=== PATIENT | male | born 1945 | race Caucasian/White ===

== ENCOUNTER 2017-06-28 07:13 | Emergency (ER) | payer MEDICARE ==
[~2017-06-28] VITALS: Ht 177.8 cm; Wt 100.0 kg
[2017-06-28] MEDS ORDERED: DSS100 PO (07:25)
[2017-06-28] MEDS ORDERED: CIPR-278 PO (07:25)
[2017-06-28] MEDS ORDERED: LISI-660 PO (07:25)
[2017-06-28] MEDS ORDERED: SIMV-259 PO (07:25)
[2017-06-28] MEDS ORDERED: ASPI81 PO (07:25)
[2017-06-28] MEDS ORDERED: METF850T2 PO (07:25)
[2017-06-28 07:52] LABS: BASOPHILS # (AUTO) 0.01 K/uL (0.00-0.20); BASOPHILS % (AUTO) 0.2 % (0.0-2.0); EOSINOPHILS # (AUTO) 0.09 K/uL (0.00-0.70); HEMOGLOBIN 13.5 g/dL (13.5-17.5); LYMPHOCYTES # (AUTO) 0.6 K/uL (1.0-4.8); LYMPHOCYTES % (AUTO) 11.2 % (22.0-44.0); MEAN CORPUSCULAR HEMOGLOBIN 30.4 pg (26.0-34.0); MEAN CORPUSCULAR VOLUME 92 fL (80-100); MONOCYTES # (AUTO) 0.6 K/uL (0.1-1.0); PLATELET COUNT (AUTO) 272 K/uL (150-450); RED BLOOD CELL COUNT(AUTO) 4.44 MIL/uL (4.50-5.90); RED CELL DISTRIBUTION WIDTH 13.4 % (11.5-14.5); WHITE BLOOD COUNT (AUTO) 5.3 K/uL (4.5-11.0)
[2017-06-28 07:59] LABS: APPEARANCE,URINE TURBID (CLEAR); GLUCOSE, URINE (UA) NEGATIVE (NEGATIVE); KETONES,URINE NEGATIVE (NEGATIVE); LEUKOCYTE ESTERASE ,URINE LARGE (NEGATIVE); OCCULT BLOOD,URINE MODERATE (NEGATIVE); PH,URINE 5.5 (5.0-8.0); PROTEIN,URINE SEE CONFIRM (NEGATIVE)
[2017-06-28 08:05] LABS: SULFOSALICYLIC ACID,URINE 3+ (Negative)
[2017-06-28 08:08] LABS: ANION GAP 8 mmol/L (8-16); CARBON DIOXIDE 30 mmol/L (22-29); CHLORIDE 102 mmol/L (98-107); CREATININE 0.99 mg/dL (0.60-1.30); GLOMERULAR FILTR. RATE CALC > 60 mL/min (>60); POTASSIUM 3.8 mmol/L (3.5-5.1); SODIUM SERUM 140 mmol/L (136-145); UREA NITROGEN, BLOOD 17 mg/dL (7-18)
[2017-06-28 08:09] LABS: WBC,URINE Full Field /HPF (0-5)
[2017-06-28 08:30] LABS: SQUAMOUS EPITHELIAL CELL,UR Rare /LPF (None Seen)
[2017-06-28] MEDS ORDERED: CefTRIAXone SODIUM 1 GM/VIAL IM ONE (08:30)
[2017-06-28] MEDS ORDERED: LIDOCAINE HCL/PF 1% 2 ML VIAL IM ONE (08:30)
[2017-06-28 08:40] VITALS: BP 125/68
[2017-06-28 11:21] LABS: GLUCOSE,POINT OF CARE 195 MG/DL (70-110)
== END 2017-06-28 08:42 | disposition home or self-care (01) ==
LOC: EMS 07:15
DX: N39.0 Urinary tract infection, site not specified (principal); E11.9 Type 2 diabetes mellitus without complications; I10 Essential (primary) hypertension; E78.00 Pure hypercholesterolemia, unspecified
CPT/HCPCS: 36415; 80048; 81001; 82948; 82962; 85025; 87077; 87086; 87186; 96372; 99284; J0696; J3490